=== PATIENT | female | born 2000 | race Caucasian/White ===

== ENCOUNTER 2020-10-18 00:58 | Day surgery (SDC) | payer BC, SELFPAY ==
[2020-10-09 15:07] VITALS: BMI 33.4
[2020-10-18] VITALS (8 sets, daily range): BP systolic 120–140; BP diastolic 72–96; PULSE 75–94; RESP 12–18; TEMP 36.1–36.2; O2SAT 100; BMI 34.9
--- NOTE | 2020-10-18 08:31 | PM.IMHP ---
H&P: HPI History of Present Illness Date/Time: 10/18/20 08:31 20 y/o G0 with intermittent low abdominal pain. She has mostly monthly menses with Nexplanon. In June, her pain sent her to the ED in [place], where a CT showed no acute source of pain. A pelvic ultrasound in July showed a 2.5 cm right adnexal cyst. Follow up ultrasound exam in my office in September showed resolution of that cyst. However, there is a similarly sized cyst on the left now, as well as a possible small myoma. She continues to have pain and associated nausea. She is interested in surgical evaluation of her problem. Chief Complaint: Pain Review of Systems Review of Systems: All systems reviewed & are unremarkable except as noted in HPI and below PMFSH Social History Social History Tobacco type: e-cigarettes/vaping Alcohol intake: current Alcohol use details: 2/MONTH Substance use: never Substance use type: does not use Living arrangements: with friend(s) Spiritual care concerns: No Meds Home Medications and Allergies Home Medications Medication Instructions Recorded Confirmed Type dicyclomine 20 mg PO DAILY PRN 10/09/20 10/09/20 History ondansetron 4 mg PO Q6H PRN 10/09/20 10/09/20 History Allergies Allergy/AdvReac Type Severity Reaction Status Date / Time No Known Allergies Allergy Mild Unverified 10/09/20 15:05 Vital Signs AVSS Exam Const: Orientation/consciousness: patient oriented x3 Other: Well-developed, well-nourished female in no acute distress. Neck: Thyroid: thyroid normal Lymphatic: no lymphadenopathy noted (in neck, axilla or inguinal nodes) Resp: Effort & Inspection: normal respiratory effort Auscultation: clear to auscultation bilaterally Cardio: Rate: regular rate Rhythm: regular rhythm Heart sounds: S1 normal heart sound present and S2 normal heart sound present GI: Other: ABD: Soft, nontender, nondistended. No guarding or rebound tenderness. No hepatosplenomegaly. : General: Yes no CVA tenderness Other: External genitalia: normal female hair distribution, without lesion. Urethral meatus: no lesion, non prolapsed. Bladder: no mass, nontender Vagina: well-estrogenized, without lesion or discharge. No cystocele or rectocele. Cervix: no lesion or discharge. Uterus: small, anteverted, freely mobile, nontender Adnexa: no mass or tenderness. Anus/perineum: no lesions, nontender Back/Spine/Pelvis: Back: no CVA tenderness Skin: General skin exam: normal color and no rashes or lesions noted Neuro: General: patient oriented x3 Extrem: Other: Extremities: nontender with no edema Psych: Mental Status: mental status grossly normal Affect: normal affect Assessment and Plan Assessment and plan (1) Pelvic pain: Code(s): R10.2 - Pelvic and perineal pain Status: Chronic Assessment and Plan: A: Persistent pelvic pain. P: I have offered continued attempts at medical management, versus surgical evaluation and treatment. She says she is ready for the latter. Specifically, I have offered a diagnostic laparoscopy. She understands risks of surgery to include risks of anesthesia, risks of pain, infection, bleeding, blood products, thromboembolic phenomena and damage to adjacent structures such as bowel, bladder, ureters, blood vessels and nerves. She understands all these risks and elects to proceed with surgery.
--- NOTE | 2020-10-18 10:15 | P.PNAN_ITS ---
Anes - Initial Pre Proc Eval Procedure: Operation Date: 10/18/20 12:00 Proposed Procedures p Diagnostic Laparoscopy - Gary Church MD Date/Time: 10/18/20 10:15 Surgeon: Gary Church MD Pre Op Diagnosis: pelvic pain Patient Data Age: 20 Gender: F Height: 1.56 m Weight: 81.65 kg Allergies Allergy/AdvReac Type Severity Reaction Status Date / Time No Known Allergies Allergy Mild Verified 10/18/20 10:16 Home Medications Medication Instructions Recorded Confirmed Type dicyclomine 20 mg PO DAILY PRN 10/09/20 10/18/20 History ondansetron 4 mg PO Q6H PRN 10/09/20 10/18/20 History Patient hx anesthesia problems: none Family hx anesthesia problems: none [facility] Social History Social History Tobacco type: e-cigarettes/vaping Alcohol intake: current Alcohol use details: 2/MONTH Substance use: never Substance use type: does not use Living arrangements: with friend(s) Spiritual care concerns: No Anes - Eval Final PreProcedure Day of Procedure 10/18/20 10:15 Patient weight: obese Heart: regular rate and rhythm Lungs: clear to auscultation and normal air movement Airway: Mallampati scale class II Neurological: alert and oriented Last oral intake: >/= 8 hours ASA classification: II Emergent: no Anesthetic plan: proceed Anesthesia type and monitoring: general ETT and standard monitoring Informed Consent: The patient's anesthetic plan and its attendant risks and benefits were discussed with the patient/family/POA. Questions were solicited and answers provided to the satisfaction of the patient/family/POA.
[2020-10-18] MEDS: ACETAMINOPHEN 500 MG TABLET 1000 MG PO (10:39)
[2020-10-18] MEDS: LACTATED RINGERS 1,000 ML 30 ML IV CONT ×2 (10:39→13:24)
[2020-10-18] MEDS: KETOROLAC 15 MG/ML VIAL (*BKC) IV PUSH (10:40)
--- NOTE | 2020-10-18 12:14 | WPDHPUPDATE1 ---
History and Physical Update Update Date/Time: 10/18/20 12:14 History and Physical has been reviewed, including an updated exam of the patient. There are NO changes in the patient's condition. Risks, benefits, and alternatives have been discussed and questions answered. Patient agrees to proceed with procedure.
--- NOTE | 2020-10-18 13:21 | PM.PROC ---
Procedure Note - Detailed Date of procedure: 10/18/20 Pre-op diagnosis: pelvic pain Post-op diagnosis: other (1) Pelvic pain 2) Endometriosis) Procedure performed: Diagnostic laparoscopy Biopsy of peritoneum of posterior cul-de-sac Cautery of endometriosis implants Description of procedure: The patient was taken to the operating room where general endotracheal anesthesia was administered. She was prepared and draped in the usual sterile fashion in the dorsal lithotomy position. The bladder was drained with a red rubber catheter. A sterile speculum was inserted into the vagina and the anterior lip of the cervix was grasped with a single-toothed tenaculum. The acorn uterine manipulator was placed. The speculum was withdrawn. Gloves were changed and attention was turned to the abdomen. An infraumbilical skin incision was made with a scalpel. The abdomen was tented and a 5 millimeter bladeless trocar trocar was advanced under direct laparoscopic visualization. Pneumoperitoneum was administered using carbon dioxide gas. A survey of the pelvis and abdomen yielded the findings noted above. A punch biopsy of the apparent endometriosis implant on the peritoneum of the posterior cul-de-sac was collected. The two lesions were cauterized with needlepoint electrocautery. The pelvis was irrigated copiously with warmed normal saline. Hemaderm was applied to the biopsy site and hemostasis was excellent. The trocar was withdrawn and the gas was allowed to escape. The skin incision was reapproximated using 4-0 Vicryl in interrupted subcuticular fashion. Dermaflex was applied externally. The vaginal instrumentation was withdrawn and hemostasis was excellent here as well. Sponge, lap, needle and instrument counts were correct. The patient was awakened and taken to recovery in stable condition. I was present and scrubbed through the entire procedure. Implants: None Anesthesia: GETA Surgeon: Gary Church MD Estimated blood loss (mL): 30 Drains: No Packing: No Pathology: yes (Peritoneal biopsy) Complications: None Condition: stable Disposition: PACU Findings: Two apparent endometriosis implants in the posterior cul-de-sac, adjacent to the uterosacral ligaments, one on the right and one on the left. The vermiform appendix is normal-appearing. The uterus, tubes, ovaries, anterior cul-de-sac, bilateral round and uteroovarian ligaments are all unremarkable.
[2020-10-18] MEDS: oxyCODONE HCL (*CRX) 5 MG TAB IR PO (14:39)
== END 2020-10-18 15:04 | disposition home or self-care (01) ==
PROVIDERS: Visit Provider Obstetrics & Gynecology
PROC: (CPT 49320; principal; 2020-10-18 12:00)
DX: R10.2 Pelvic and perineal pain (principal); N80.3 Endometriosis of pelvic peritoneum; F17.290 Nicotine dependence, other tobacco product, uncomplicated; E66.9 Obesity, unspecified; Z68.34 Body mass index [BMI] 34.0-34.9, adult
CPT/HCPCS: 58662; 36415; 86850; 86900; 86901; 88305; A9270; J0330; J1885; J2250; J2405; J2704; J3010; J7030; J7120; Q9968